=== PATIENT | female | born 1990 | race Caucasian/White ===

== ENCOUNTER 2019-06-25 17:32 | Emergency (ER) | payer MEDICAID, OTHER ==
[~2019-06-25] VITALS: Ht 157.5 cm; Wt 72.4 kg
[~2019-06-25 17:32] MED LIST: CEPH-443 PO; IBUP-1542 PO; IBUP800T48 PO
[2019-06-25 17:53] VITALS: Ht 157.5 cm; Wt 72.4 kg
[2019-06-25 21:39] VITALS: BP 115/57; PULSE 67; RESP 19
--- NOTE | 2019-06-26 00:14 | ERD ---
ER Documentation Chief Complaint Chief Complaint vaginal bleeding LMP - 05/04/19 HPI 29-year-old female presenting to the emergency department complaining of intermittent vaginal bleeding which began 2 hours prior to arrival. She has not yet needed to use a pad. Her last menstrual cycle was 05/04/2019. She is Ab0. She denies any suprapubic or pelvic pain. She denies any abdominal pain, dysuria, fevers, chills, or other symptoms at this time. ROS All systems reviewed and are negative except as per history of present illness. Medications Home Meds Active Scripts Ibuprofen* (Motrin*) 600 Mg Tab, 600 MG PO Q6, #30 TAB Prov:MALVIN PRINCE PA-C 06/25/19 Cephalexin* (Keflex*) 500 Mg Capsule, 500 MG PO TID for 7 Days, CAP Prov:MALVIN PRINCE PA-C 06/25/19 Allergies Allergies: Coded Allergies: No Known Allergy (Unverified , 06/25/19) PMhx/Soc Medical and Surgical Hx: pt denies Medical Hx, pt denies Surgical Hx Hx Alcohol Use: No Hx Substance Use: No Hx Tobacco Use: No Smoking Status: Never smoker FmHx Family History: No diabetes Physical Exam Vitals Vital Signs Date Temp Pulse Resp B/P (MAP) Pulse Ox O2 O2 Flow FiO2 Time Delivery Rate 06/25/19 98.6 67 19 115/57 99 Room Air 21:39 (76) 06/25/19 98.4 61 20 115/61 100 17:53 (79) Physical Exam Const: No acute distress Head: Atraumatic Eyes: Normal Conjunctiva ENT: Normal External Ears, Nose and Mouth. Neck: Full range of motion. No meningismus. Resp: Clear to auscultation bilaterally Cardio: Regular rate and rhythm, no murmurs Abd: Soft, non tender, non distended. Normal bowel sounds. No rebound tenderness or guarding. No McBurney's point tenderness. No tenderness palpation of the suprapubic region. Skin: No petechiae or rashes Back: No midline or flank tenderness Ext: No cyanosis, or edema Neur: Awake and alert Psych: Normal Mood and Affect Result Diagram: 06/25/19201406/25/192014 Results 24 hrs Laboratory Tests Test 06/25/19 20:15 White Blood Count 6.2 10^3/ul Red Blood Count 4.61 10^6/ul Hemoglobin 13.6 g/dl Hematocrit 41.0 % Mean Corpuscular Volume 88.9 fl Mean Corpuscular Hemoglobin 29.5 pg Mean Corpuscular Hemoglobin Concent 33.2 g/dl Red Cell Distribution Width 13.3 % Platelet Count 212 10^3/UL Mean Platelet Volume 11.4 fl Immature Granulocytes % 0.500 % Neutrophils % 48.6 % Lymphocytes % 33.2 % Monocytes % 10.0 % Eosinophils % 7.4 % Basophils % 0.3 % Nucleated Red Blood Cells % 0.0 /100WBC Immature Granulocytes # 0.030 10^3/ul Neutrophils # 3.0 10^3/ul Lymphocytes # 2.1 10^3/ul Monocytes # 0.6 10^3/ul Eosinophils # 0.5 10^3/ul Basophils # 0.0 10^3/ul Nucleated Red Blood Cells # 0.0 10^3/ul Urine Color [place] Urine Clarity CLOUDY Urine pH 5.0 Urine Specific [place] 1.025 Urine Ketones NEGATIVE mg/dL Urine Nitrite NEGATIVE mg/dL Urine Bilirubin NEGATIVE mg/dL Urine Urobilinogen NEGATIVE mg/dL Urine Leukocyte Esterase 1+ Vladimir/ul Urine Microscopic RBC 147 /HPF Urine Microscopic WBC > 182 /HPF Urine Squamous Epithelial Cells MANY /HPF Urine Bacteria FEW /HPF Urine Mucus MODERATE /HPF Urine Hemoglobin 3+ mg/dL Urine Glucose NEGATIVE mg/dL Urine Total Protein 2+ mg/dl Sodium Level 141 mmol/L Potassium Level 4.6 mmol/L Chloride Level 105 mmol/L Carbon Dioxide Level 29 mmol/L Anion Gap 7 Blood Urea Nitrogen 10 mg/dl Creatinine 0.57 mg/dl Est Glomerular Filtrat Rate mL/min > 60 mL/min Glucose Level 92 mg/dl Calcium Level 9.6 mg/dl Total Bilirubin 0.6 mg/dl Direct Bilirubin 0.00 mg/dl Indirect Bilirubin 0.6 mg/dl Aspartate Amino Transf (AST/SGOT) 40 IU/L Alanine Aminotransferase (ALT/SGPT) 59 IU/L Alkaline Phosphatase 60 IU/L Total Protein 8.9 g/dl Albumin 4.6 g/dl Globulin 4.30 g/dl Albumin/Globulin Ratio 1.06 Beta HCG, Quantitative 3314.1 mIU/ml [place] [address] Radiology Main Line: [phone] DIAGNOSTIC IMAGING REPORT Patient: ROLANDO MUKHERJEE : 1990 Age: 29 Sex: F MR #: [id number] DOS: 06/25/19 1922 Ordering MD: MALVIN PRINCE PA-C Location: FT Room/Bed: PROCEDURE: Obstetrical ultrasound . CLINICAL INDICATION: Vaginal bleeding, pain TECHNIQUE: Multiple sonographic images of the pelvis were obtained utilizing a transabdominal and endovaginal technique. The images were reviewed on a PACS workstation. COMPARISON: None. FINDINGS: There is a single intrauterine present with the crown-rump length measuring 1.3 cm and the gestational sac measures 1.5 cm which corresponds to a calculated gestational age of 6 weeks and 5 days. No heart tones are identified. The right ovary measures 3.2 x 2.3 x 1.7 cm. The left ovary measures 2.7 x 1.0 x 2.0 cm. No abnormal adnexal masses are present. No significant free fluid is present within the pelvis. RPTAT: AA IMPRESSION: Single intrauterine at 6 weeks and 5 days. NO HEART TONES NOTED, CONSISTENT WITH DEMISE. .Mario Ferguson MD, MD Date Time Electronically viewed and signed by .Mario Ferguson MD, MD on 06/25/2019 20:23 .S/ CC: MALVIN PRINCE PA-C [phone] Procedures/MDM This is a 29-year-old female presenting to the emergency department complaining of intermittent vaginal bleeding for the past 2 hours. Obstetrics ultrasound revealed an intrauterine with no heart tones, consistent with demise. The full report interpreted by the radiologist may be viewed above. Patient also had evidence of mild urinary tract infection. No evidence to suggest septic , PID, tubo-ovarian abscess, ovarian torsion, pyelonephritis, acute surgical abdomen, or other emergent process. Patient is stable and appropriate for discharge and further outpatient management with prescriptions for ibuprofen and Keflex. I did discuss this case with attending [employer]ER [employer] INSPECT[employer] physician, Dr. Home Flood, who agreed with ED course and plan for discharge with follow-up with the patient's [employer]ER GOODS INSPECTOR physician within the next 24 to 48 hours. Patient was given copies of her results. She was advised to follow-up with her primary care physician and [employer] INSPECT[employer] physician within the next 24 to 48 hours and return here immediately for any new or worsening or concerning symptoms. Patient demonstrated good understanding of discharge information and return precautions. Departure Diagnosis: Primary Impression: demise Additional Impression: UTI (urinary tract infection) Condition: Fair Patient Instructions: Understanding Urinary Tract Infections (UTIs), Missed Miscarriage Referrals: [facility] ted se rowe hecho un examen mdico de control que le indica que no est en farida condicin que requiera tratamiento urgente en el Departamento de Emergencia. Un estudio ms profundo y el tratamiento de padron condicin pueden esperar sin ningn riesgo hasta que usted sea atendida/o en el consultorio de padron mdico o farida clnica. Es responsabilidad suya arreglar farida teresa para el seguimiento del roger. MANEJO DE CONDICIONES NO URGENTES EN EL FUTURO 1) Si usted tiene un mdico de atencin primaria: Usted debera llamar a padron mdico de atencin primaria antes de venir al departamento de emergencia. Despus de las horas de consultorio, padron doctor o padron asociado/a est disponible por telfono. El mdico o enfermero de major en el servicio telefnico puede asesorarle por andrew medio para atender el problema, o roger contrario se puede programar farida teresa. 2) Si usted no tiene un mdico de atencin primaria: Llame al mdico o clnica de referencia que aparece abajo tejas las horas de consultorio para hacer farida teresa para que le vean. CLINICAS: [place] [id number] [phone] [facility] [phone] [facility] [phone] [place] [address] [phone] [place] [address] [phone] [place] [phone] [employer]ER [employer] INSPECTOR REFERR[place] [address] [facility] [address] [place], [place] [id number] OFFICE FAX , [facility] [address] [place] [address] [address] SIG[facility] [facility] [address] [place] [address] DR RILEY, [facility] [address] [facility] [address] [address] [facility] [address] [place] [address] [facility] [address] [place] [address] [phone] [facility] [address] [facility] [address], [place] [address] [address] CANTU, [place] [address] [facility]. [address], [place] [address] JUAQUIN ZUNIGA [address] [place], [place] [id number] Additional Instructions: Specialist:Usted tiene farida condicin mdica que requiere que sharlene a un especialista dentro de los prximos 1-2 oh.POR FAVOR,CON PADRON SEGUIMIENTO DE PRIMARIA PHSICIAN refferal. SI USTED NO TIENE UN MDICO GENERAL Y / O USTED NO PUEDE PAGAR dunia a un mdico,los siguientes anders RECURSOS sido suministrado a usted. ES PADRON RESPONSABILIDAD PARA SER VISTOS POR EL ESPECIALISTA: MALVIN HENRY PA-C Jun 26, 2019 00:13
== END 2019-06-25 21:40 | disposition home or self-care (01) ==
LOC: FTE 17:32
DX: O02.1 Missed abortion (principal)
CPT/HCPCS: 36415; 76801; 76817; 80053; 81001; 84702; 85025; 86900; 86901; Z7502

== ENCOUNTER 2019-06-27 09:11 | Emergency (ER) | payer MEDICAID ==
[~2019-06-27] VITALS: Wt 67.0 kg
[2019-06-27 09:15] VITALS: BP 129/67; PULSE 78; RESP 18
[2019-06-27] MEDS ORDERED: ACETAMINOPHEN 325 MG TAB PO STA (09:39)
--- NOTE | 2019-06-27 09:48 | ERD ---
ER Documentation Chief Complaint Chief Complaint 7 weeks with spotting HPI This is a 29-year-old female patient who is 7 weeks and presents emergency room with complaint of having 3 episodes of heavy bleeding last night with concern of miscarriage. She is now having moderate bilateral pelvic pain and reports dark brown spotting. Patient was seen in this ER 2 days ago for spotting, had ultrasound that revealed IUP without heart rate. Patient did follow-up with her OB and was counseled on options for a demise and instructed to return to the emergency room with any bleeding or pain. Patient denies fevers, no dysuria, no other physical complaint. Patient is alert and appropriate at time of evaluation. LMP: "End of March" OB: Martin Mcelroy, PCP Mckayla Childs: OBINNA Zapien [place] All systems reviewed and are negative except as per history of present illness. Medications Home Meds Active Scripts Ibuprofen* (Motrin*) 800 Mg Tab, 800 MG PO Q6, #30 TAB Prov:NIEVES CURIEL CODING DIRECTOR 06/27/19 Ibuprofen* (Motrin*) 600 Mg Tab, 600 MG PO Q6, #30 TAB Prov:MALVIN PRINCE PA-C 06/25/19 Cephalexin* (Keflex*) 500 Mg Capsule, 500 MG PO TID for 7 Days, CAP Prov:MALVIN PRINCE PA-C 06/25/19 Allergies Allergies: Coded Allergies: No Known Allergy (Unverified , 06/27/19) PMhx/Soc Medical and Surgical Hx: pt denies Medical Hx Hx Alcohol Use: No Hx Substance Use: No Hx Tobacco Use: No Smoking Status: Never smoker FmHx Family History: No diabetes, No coronary disease, No other Physical Exam Vitals Vital Signs Date Temp Pulse Resp B/P (MAP) Pulse Ox O2 O2 Flow FiO2 Time Delivery Rate 06/27/19 98.1 78 18 129/67 99 09:15 (87) Physical Exam Const: No acute distress Head: Atraumatic Eyes: Normal Conjunctiva ENT: Normal External Ears, Nose and Mouth. Neck: Full range of motion. No meningismus. Resp: Clear to auscultation bilaterally Cardio: Regular rate and rhythm, no murmurs Abd: Soft, tender RLQ/LLQ, non distended. Normal bowel sounds Skin: No petechiae or rashes, skin color appropriate for ethnicity, turgor <2 sec Back: No midline or flank tenderness Neur: Awake and alert Psych: Normal Mood and Affect Result Diagram: 06/27/1948 Results 24 hrs Laboratory Tests Test 06/27/19 09:48 White Blood Count 5.5 10^3/ul Red Blood Count 4.71 10^6/ul Hemoglobin 13.6 g/dl Hematocrit 42.5 % Mean Corpuscular Volume 90.2 fl Mean Corpuscular Hemoglobin 28.9 pg Mean Corpuscular Hemoglobin Concent 32.0 g/dl Red Cell Distribution Width 13.2 % Platelet Count 208 10^3/UL Mean Platelet Volume 11.2 fl Immature Granulocytes % 0.400 % Neutrophils % 53.9 % Lymphocytes % 28.6 % Monocytes % 9.8 % Eosinophils % 6.9 % Basophils % 0.4 % Nucleated Red Blood Cells % 0.0 /100WBC Immature Granulocytes # 0.020 10^3/ul Neutrophils # 3.0 10^3/ul Lymphocytes # 1.6 10^3/ul Monocytes # 0.5 10^3/ul Eosinophils # 0.4 10^3/ul Basophils # 0.0 10^3/ul Nucleated Red Blood Cells # 0.0 10^3/ul Urine Color YELLOW Urine Clarity CLOUDY Urine pH 5.0 Urine Specific [place] 1.023 Urine Ketones [place] mg/dL Urine Nitrite NEGATIVE mg/dL Urine Bilirubin NEGATIVE mg/dL Urine Urobilinogen 1+ mg/dL Urine Leukocyte Esterase 1+ Vladimir/ul Urine Microscopic RBC > 182 /HPF Urine Microscopic WBC 25 /HPF Urine Squamous Epithelial Cells MODERATE /HPF Urine Bacteria FEW /HPF Urine Mucus FEW /HPF Urine Hemoglobin 3+ mg/dL Urine Glucose NEGATIVE mg/dL Urine Total Protein 1+ mg/dl Beta HCG, Quantitative 676.5 mIU/ml Current Medications Medications Dose Sig/Orestes Start Time Status Last (Trade) Ordered Route PRN Stop Time Admin Dose Reason Admin 650 mg ONCE STAT 06/27/19 DC 06/27/19 Acetaminophen PO 09:39 06/27/19 09:50 (Tylenol 09:41 Tab) Procedures/MDM PROCEDURES/MDM DIAGNOSTIC IMAGING: Read by radiologist. OB ultrasound June 25 IUP 6 weeks 5 days, no heart tones noted PROCEDURES: Pelvic Exam: Plastics Scientist present Abdomen: Nontender External Genitalia: Normal Skin Speculum: Normal vaginal mucosa, mod blood in vault easily removed with gauze, no tissue in open os, brb from os Bimanual: No adnexal masses or tenderness, No CMT LAB INTERPRETATION: June 25 [facility] [place] 3,[phone] Jul 28 [facility] 676 -Medications: Tylenol Patient tolerated medication well with no adverse reactions. Patient reported improvement in pain. -Consultation: Appt made for 2 days with patient's doctor at [facility]. Patient provided with date, time, address, labs and ultrasound reports MDM: Patient prevents with vaginal bleeding since last night when she reports having 3 episodes of large blood with passing of clots and tissue. Pt was evaluated 2 days ago and informed of impending demise. She was seen yesterday by her OB who told her if she had pain or bleeding to come to ER. Repeat lab work and US indicate complete AB. Patient is discharged to follow-up with her OB in 2 days for repeat evaluation. Appointment made on patient's behalf prior to discharge. No indication of hemorrhage, patient hemodynamically stable at time of discharge. She is to return sooner for fevers, hemorrhaging, new worsening symptoms. Current signs or symptoms do not suggest appendicitis, acute surgical abdomen, additional concerning signs or symptoms or conditions. The patient was stable with no new complaints during the ER course. Clinically, there is no current evidence to suggest meningitis, sepsis, acute abdomen, pneumonia, stroke, acute coronary syndrome, pulmonary embolism, aortic dissection or any other emergent condition appearing to require further evaluation or hospitalization. Patient counseled regarding my diagnostic impression and care plan. Prior to discharge all questions answered. Pt agrees with treatment plan and understands strict return precautions. Pt is instructed to follow up with primary care provider within 24-48 hours. Precautionary instructions provided including instructions to return to the ER if not improving or for any worsening or changing symptoms or concerns. DISPOSITION and PLAN: RX: Ibuprofen. Patient instructed to continue ABX prescribed on 06/25/19. The patient has been discharge home to follow-up with community physician. Departure Diagnosis: Primary Impression: Complete Condition: Stable NIEVES CURIEL NP Jun 27, 2019 09:48
== END 2019-06-27 11:52 | disposition home or self-care (01) ==
LOC: FTE 09:11
DX: O03.9 Complete or unspecified spontaneous abortion without complication (principal)
CPT/HCPCS: 36415; 76801; 76817; 81001; 84702; 85025; Z7502; Z7610